=== PATIENT | female | born 1985 | race African-American/Black ===

== ENCOUNTER 2017-06-21 22:01 | Emergency (ER) | payer BC ==
[2017-06-22] MEDS ORDERED: hydrOXYzine HCL TAB* 25 MG PO ONE (00:13)
[2017-06-22] MEDS ORDERED: cloNIDine TAB* 0.1 MG PO ONE (00:13)
[2017-06-22] MEDS ORDERED: Ibuprofen TAB* 800 MG PO ONE (00:14)
[2017-06-22 00:46] LABS: ABS Basophils 0.1 10^3/ul (0-0.2); ABS Eosinophils 0.1 10^3/ul (0-0.6); ABS Lymphocytes 2.2 10^3/ul (1.0-4.8); ABS Monocytes 0.8 10^3/ul (0-0.8); ABS Neutrophils 7.4 10^3/ul (1.5-7.7); ABS Nucleated RBC 0 10^3/ul; Eosinophil % 0.7 % (0-6); Hematocrit 42 % (35-47); Hemoglobin 13.7 g/dl (12.0-16.0); Lymphocyte % 21.2 % (25-47); Mean Corpuscular HGB Conc 33 g/dl (31-36); Mean Corpuscular Hemoglobin 29 pg (27-31); Mean Corpuscular Volume 90 fL (80-97); Mean Platelet Volume 8 um3 (7.4-10.4); Nucleated Red Blood Cells % 0.1; Platelet Count 268 10^3/ul (150-450); Red Blood Count 4.67 10^6/ul (4.0-5.4); Red Cell Distribution Width 14 % (10.5-15); White Blood Count 10.5 10^3/ul (3.5-10.8)
[2017-06-22 00:57] LABS: EGFR Non-African American 90.4 (>60)
[2017-06-22 01:56] VITALS: BP 129/70
[2017-06-22] MEDS ORDERED: cloNIDine 0.1 MG PATCH* 0.1 MG/24 HR 7 DAY PATCH TRANSDERM SCH (02:00)
--- NOTE | 2017-06-22 02:20 | ED ---
Lam Tai Jennifer, scribed for Antony Ramírez on 06/22/17 at 0034 . Substance Abuse/Use - HPI Summary HPI Summary: The patient is a 32 year old female who presents to the ED with withdrawal symptoms for the past two days. She reports she last used Percocet two days ago. Since then, she has had body aches, anxiety, wants to rip her skin off, and insomnia. The patient denies chest pain and shortness of breath. - History Of Current Complaint Chief Complaint: EDDetoxRequest Stated Complaint: WITHDRAWAL Time Seen by Provider: 06/22/17 00:05 Hx Obtained From: Patient Onset/Duration of Drug/ETOH Abuse: Days - two days Ingestion History: Type/Name Of Drug - Percocet Overdose Characteristics: Oral Severity Initially: Moderate Severity Currently: Moderate Aggravating Factor(s): Nothing Alleviating Factor(s): Nothing Associated Signs And Symptoms: Other: - body aches, anxiety, wants to "rip her skin off", insomnia. NEGATIVE: chest pain, shortness of breath - Allergies/Home Medications Allergies/Adverse Reactions: Allergies Allergy/AdvReac Type Severity Reaction Status Date / Time No Known Allergies Allergy Verified 06/21/17 22:07 PMH/Surg Hx/FS Hx/Imm Hx Endocrine/Hematology History: Denies: Hx Diabetes Cardiovascular History: Denies: Hx Hypertension Infectious Disease History: No Infectious Disease History: Denies: Traveled Outside the [place] in Last 30 Days - Family History Known Family History: Positive: Diabetes - Father, grandparents - Social History Substance Use Type: Reports: Marijuana Review of Systems Negative: Chest Pain Negative: Shortness Of Breath Positive: Myalgia Neurological: Other - Insomnia Positive: Anxious All Other Systems Reviewed And Are Negative: Yes Physical Exam - Summary Physical Exam Summary: Appearance: Well appearing, no pain distress Skin: warm, dry, reflects adequate perfusion Head/face: normal Eyes: EOMI, GERARDO ENT: normal Neck: supple, non-tender Respiratory: CTA, breath sounds present Cardiovascular: RRR, pulses symmetrical Abdomen: non-tender, soft Bowel: present Musculoskeletal: normal, strength/ROM intact Neuro: normal, sensory motor intact, A&Ox3 Triage Information Reviewed: Yes Vital Signs On Initial Exam: Initial Vitals Temp Pulse Resp BP Pulse Ox 98.6 F 66 16 122/64 97 06/21/17 22:03 06/21/17 22:03 06/21/17 22:03 06/21/17 22:03 06/21/17 22:03 Vital Signs Reviewed: Yes Diagnostics - Vital Signs Vital Signs Temp Pulse Resp BP Pulse Ox 06/21/17 22:03 98.6 F 66 16 122/64 97 - Laboratory Result Diagrams: 06/22/17 00:25 06/22/17 00:25 Lab Statement: Any lab studies that have been ordered have been reviewed, and results considered in the medical decision making process. - EKG 00:29 Cardiac Rate: NL EKG Rhythm: Sinus Rhythm - 67 BPM EKG Interpretation: no acute changes Course/Dx - Course Assessment/Plan: The patient is a 32 year old female who presents to the ED with withdrawal symptoms for the past two days. In the ED course the patient was given Clonidine, Atarax, and Motrin. Bloodwork was obtained. EKG was obtained. The patient was diagnosed with Substance abuse and Acute withdrawals. - Diagnoses Provider Diagnoses: Substance abuse, Acute drug withdrawal syndrome Discharge - Discharge Plan Condition: Stable Disposition: HOME Prescriptions: hydrOXYzine pamoate [Vistaril] 25 mg PO TID #20 cap Ibuprofen TAB* [Motrin TAB* 600 MG] 600 mg PO Q8H PRN #15 tab MDD 3 PRN Reason: Pain Patient Education Materials: Hydroxyzine (By mouth), Clonidine (Absorbed through the skin), Opioid Withdrawal (ED) Referrals: [facility] [place] [facility] [Outside] - 3 Days Additional Instructions: Follow up with your primary care physician in three days. Return to the emergency department for any new or worsening symptoms. The documentation as recorded by the Lam gaona Jennifer accurately reflects the service I personally performed and the decisions made by , Antony Ramírez.
== END 2017-06-22 01:55 | disposition home or self-care (01) ==
LOC: ED 22:01
DX: F19.939 Other psychoactive substance use, unspecified with withdrawal, unspecified (principal); M79.1 Myalgia; G47.00 Insomnia, unspecified; F41.9 Anxiety disorder, unspecified
CPT/HCPCS: 36415; 80053; 84484; 84702; 85025; 93005; 99282; A9270-GY